=== PATIENT | female | born 1935 | race Caucasian/White ===

== ENCOUNTER → 2019-11-22 | Emergency (ER) | payer OTHER | LOC: EDH 15:54 | DX: M79.603 Pain in arm, unspecified (principal) | CPT/HCPCS: 82948; 93005 ==

== ENCOUNTER 2022-10-14 16:57 | Emergency (ER) | payer OTHER ==
[~2022-10-14] VITALS: Ht 170.2 cm; Wt 71.2 kg
[2022-10-14 17:44] LABS: BASOPHILS % (AUTO) 0.3 % (0.0-5.0); EOSINOPHILS % (AUTO) 4.2 % (0.0-8.0); HEMATOCRIT 38.8 % (36-48); LYMPHOCYTES % (AUTO) 21.5 % (21.0-51.0); MEAN CORPUSCULAR HEMOGLOBIN 29.1 pg (27.0-33.0); MEAN CORPUSCULAR HGB CONC 31.4 g/dL (32.0-36.0); MEAN CORPUSCULAR VOLUME 92.6 fL (79-99); MONOCYTES % (AUTO) 10.2 % (3.0-13.0); PLATELET COUNT (AUTO) 550 K/uL (130-400); RED BLOOD CELL COUNT(AUTO) 4.19 MIL/uL (4.00-5.50); RED CELL DISTRIBUTION WIDTH 13.9 % (11.0-15.5); WHITE BLOOD COUNT (AUTO) 12.3 K/uL (4.8-10.8)
[2022-10-14 17:53] LABS: CREATININE 1.2 mg/dL (0.5-1.5); POTASSIUM 3.8 mmol/L (3.5-5.1)
[2022-10-14 17:55] LABS: INR 1.06 (0.85-1.15); PROTHROMBIN TIME 11.5 SEC (9.6-11.6)
[2022-10-14 17:57] LABS: TOTAL PROTEIN, SERUM 7.1 g/dL (6.0-8.3)
[2022-10-14] MEDS ORDERED: IOHEXOL 350 MG/ML 100ML INFUS..BTL IV ONE (20:28)
[2022-10-14 21:32] VITALS: BP 124/75
[2022-10-14] MEDS ORDERED: OMEP40CA21 PO (22:01)
[2022-10-14] MEDS ORDERED: ONDA-104 PO (22:01)
[2022-10-14] MEDS ORDERED: DIPH1TAB PO (22:01)
== END 2022-10-14 22:15 | disposition home or self-care (01) ==
LOC: EDH 16:57
DX: K52.9 Noninfective gastroenteritis and colitis, unspecified (principal); E03.9 Hypothyroidism, unspecified; E78.5 Hyperlipidemia, unspecified; I10 Essential (primary) hypertension; Z88.8 Allergy status to other drugs, medicaments and biological substances; Z79.899 Other long term (current) drug therapy
CPT/HCPCS: 99284; 74177; 80053; 85025; 85610; 82272; 36415; Q9967; 82270